=== PATIENT | male | born 1960 | race Caucasian/White ===

== ENCOUNTER 2018-03-10 09:41 | Outpatient (CLI) | payer OTHER, SELFPAY ==
[2018-03-10 10:53] LABS: ALT 25 U/L (12-78); AST 23 U/L (15-37); Albumin 3.7 g/dL (3.4-5.0); Alkaline Phosphatase 93 U/L (46-116); Anion Gap 6.1 mmol/L (3-11); BUN 18 mg/dL (7-18); Bilirubin, Total 1.9 mg/dL (0.2-1.0); CO2 30.9 mmol/L (21.0-32.0); CREATININE 1.04 mg/dL (0.70-1.30); Calcium 8.8 mg/dL (8.5-10.1); Chloride 103 mmol/L (98-107); Cholesterol 177 mg/dL (50-200); Glucose 93 mg/dL (70-100); HDL Cholesterol 64 mg/dL (40-60); LDL CHOLESTEROL 112 mg/dL (<100); Potassium 3.8 mmol/L (3.5-5.1); Sodium 140 mmol/L (136-145); Total Protein 6.6 g/dL (6.4-8.2); Triglyceride 32 mg/dL (30-150)
== END 2018-03-10 10:01 ==
PROVIDERS: PCP Nurse Practitioner; Visit Provider Nurse Practitioner
DX: Z00.00 Encounter for general adult medical examination without abnormal findings (principal); Z13.220 Encounter for screening for lipoid disorders; Z13.228 Encounter for screening for other metabolic disorders
CPT/HCPCS: 36415; 80053; 80061; 83721

== ENCOUNTER 2018-06-02 12:47 | Outpatient (CLI) | payer OTHER, SELFPAY ==
--- NOTE | 2018-06-02 10:15 | DI.RAD_ITS ---
SYMPTOM/DIAGNOSIS: SOB INDOORS WITH EXPOSURE TO ENVIRONMENTAL TOXINS, RADON EXPOSURE, X39.01XA,R06.02 PA AND LATERAL CHEST: The heart is normal in size. The lungs are clear. The mediastinal structures and pleura appear intact. CONCLUSION: Normal chest.
== END 2018-06-02 13:07 ==
PROVIDERS: PCP Nurse Practitioner; Visit Provider Nurse Practitioner
DX: R06.02 Shortness of breath (principal); X39.01XA Exposure to radon, initial encounter
CPT/HCPCS: 71046

== ENCOUNTER 2018-06-27 13:37 | Day surgery (SDC) | payer OTHER, SELFPAY ==
[2018-06-27 14:11] VITALS: BP 114/78; PULSE 78; RESP 16; TEMP 36; O2SAT 97
[2018-06-27] MEDS: Lidocaine 2% Multi-Dose 50 ML VIAL (17:06)
--- NOTE | 2018-06-27 17:46 | PDOC.DSDIS_ITS ---
Discharge Plan Disposition Patient Disposition: HOME Condition: Good Discharge Details Reason For Visit: MUCOUS CYST RLF Attending Provider: Soy Montenegro Primary Care Provider: Riddhi Pemberton Home Meds and New Rx's Prescriptions: Continued triamcinolone acetonide 15 GM ointment 1 alina Topical BID Qty: 15 RF: 0 Discharge Instructions Additional Instructions: Keep dressings dry and in place. May go to work on WED if you cover your dressing with a glove. Use your R hand as much as your discomfort allows. Take tylenol or ibuprofen for pain. Follow up with in one week. Call his office tomorrow to make [phone] Referrals: Soy Montenegro MD [ [facility] STAFF PHYSICIAN] - (f/u in one week.) Activity:: Activity as Tolerated Remove Dressings/Wound Care:: Do Not Remove Shower/Bathe:: Cover Discharge Orders Discharge Orders: Discharge Order (Routine); Ordered 06/27/18 Ordered By: Soy Montenegro DS: Diagnosis Discharge Diagnosis (1) Mucous cyst of digit of hand: Status: Acute
--- NOTE | 2018-06-28 17:09 | ROE_ITS ---
DATE OF PROCEDURE: June 27, 2018 PREOPERATIVE DIAGNOSIS: Mucous cyst, right little finger. POSTOPERATIVE DIAGNOSIS: Same. PROCEDURE: Excision of mucous cyst, right little finger. ANESTHESIA: Digital block with 1% Xylocaine solution and 0.5% Marcaine with epinephrine solution. SURGEON: Soy Montenegro M.D. INDICATIONS: This is a 58-year-old white male who has noted the development of a cyst overlying the DIP joint of his right little finger. He has been bothered by this cyst. He was tempted to put a pi n in it, but has refrained from doing so. He was seen in the office and it had the appearance of a t ypical mucous cyst, probably arising from a small dorsal osteophyte on the distal phalanx. I recomme nded excision of the mucous cyst, as well as the cause of the mucous cyst, a small osteophyte, so dominique t it won't return. The risks and complications of the procedure were explained to the patient in det ail preoperatively. PROCEDURE DESCRIPTION: The patient was taken to the Operating Room on 06/27/18. He was placed supine on the operating table. The right hand, wrist and distal forearm were prepped and draped free in th e usual sterile fashion. I performed a digital block to the right little finger at the level of the MP joint with 1% Xylocaine solution. Once good anesthesia was obtained, a Deidre tourniquet was alina lied to the base of the finger and then an incision was made beginning at the cuticle of the nail in the midline, curving around the cyst on the radial side of the finger and then coming back to the mid line proximal to the cyst. I began proximally and dissected down to the extensor tendon. I then cre ated flaps circumferentially around the cyst and was able to raise the flap with the attached cyst an d reflect it ulnarward. The source of the cyst could easily be seen and palpated was a small bony sp wes arising from the base of the distal phalanx. This spike was removed with a rongeur. I then proc eeded to sharply dissect the cyst from the overlying skin. I then used a small rongeur to assist wit h removal of all abnormal tissue from under the skin. I was left with viable skin and a viable flap to repair. The wound was irrigated with saline solution. The digital block was then supplemented wi th another digital block using 0.5% Marcaine with an epinephrine solution. The skin edges were appro ximated loosely with a few interrupted #4-0 Nylon sutures. Xeroform gauze was applied to the wound a nd then the Deidre tourniquet was released and pressure with a gauze 4x4 for a couple of minutes was used to obtain hemostasis. I then dressed the finger with tube gauze and taped it securely in place . The patient was discharged to the Day Surgery Unit in good condition. The patient was discharged home with instructions to keep his dressings clean and dry until he follow s up with me in one week for a wound check. After 48 hours he may return to work, but should use a g love to cover the finger and his dressings for work. He may use his right hand as much as discomfort allows. He will take Tylenol or ibuprofen for pain.
== END 2018-06-27 18:09 | disposition home or self-care (01) ==
PROVIDERS: PCP Nurse Practitioner; Visit Provider Orthopaedic Surgery
PROC: (CPT 26160; principal; 2018-06-27 13:45)
DX: M71.341 Other bursal cyst, right hand (principal)
CPT/HCPCS: 26115

== ENCOUNTER 2019-01-03 14:08 | Emergency (ER) | payer OTHER, SELFPAY ==
[2019-01-03] VITALS (7 sets, daily range): BP systolic 122–146; BP diastolic 83–90; PULSE 70–80; RESP 12–19; TEMP 36.6–36.7; O2SAT 98–100
--- NOTE | 2019-01-03 14:11 | NUR.NOTE ---
Nursing Note: primary care called. pt showed up on their doorstep reports that he was masturbating in the shower 5 days ago and developed chest pain. pt was watching porn on wednesday and developed chest pain. symptoms again yesterday and today. denies any lightheadedness or dizziness to them. they are unable to see patient in the office today and sent him to the er.
--- NOTE | 2019-01-03 14:26 | DI.RAD_ITS ---
EXAM: XR CHEST 2V PA LATERAL INDICATION: chest pain. COMPARISON: XR CHEST 2V PA LATERAL from 06/02/2018 TECHNIQUE: 2D digital imaging was performed. FINDINGS: Cardiac and mediastinal contours have a normal appearance. The lungs are well inflated and clear. N o infiltrate, effusion or pneumothorax is seen. The spine appears intact. IMPRESSION: Negative chest x-ray.
--- NOTE | 2019-01-03 14:26 | ED.GENADUL_ITS ---
Discharge Plan Disposition Patient Disposition: HOME Condition: Stable Discharge Details Chief Complaint: Chest Pain Clinical Impression: Chest pain Primary Care Provider: Riddhi Pemberton ED Provider: Cristian Coreas Home Meds and New Rx's Prescriptions: Continued triamcinolone acetonide 15 GM ointment 1 alina Topical BID Qty: 15 RF: 0 acetaminophen 500 mg Tablet 500 mg PO Q4H PRNRF: 0 Discharge Instructions Instructions: Chest Pain (ED) Additional Instructions: your blood work and chest xray were normal follow up with your primary care provider within 1 week if you have worsening pain, difficulty breathing, fevers or feel more ill return to the emergency department Medical Decision Making 58 yo male who denies chronic medical problems and denies smoking hx comes in with intermittent chest pain for 5 days. Denies any pain with exertion, radiation of pain, n/v, diaphoresis. He can't think of anything that makes this pain better or worse. Denies fevers or chills. He is in no distress on exam, no leg edema, no calf pain no jvd, clear lugns and no murmurs. EKG unremarkable. HEart score is 2, will send troponin. No tearing back pain and normal vascular exam so doubt dissection. No evidence of dvt, n opleuritic chest pain and no hypoxia or tachycardia so doubt PE. labs unremarkable and cxr normal and he remains pain free. Given 5 days of symptoms do not feel delta troponin would be of benefit. Will d/c and have him f/u with pcp, return precautions given Differential Diagnosis Differential Diagnosis: acs, ptx, pleurisy Imaging Data Radiologic Study: Attestation: I personally reviewed and interpreted this imaging study as follows: Imaging: X-Ray Radiologist's impression: no acute findings Lab Data Lab results reviewed: Yes I reviewed the patient's lab results. ECG Data Attestation: I personally reviewed and interpreted this ECG (s) as follows: Prior ECG tracings: not available for review Interpretation: sinus rhythm, rate of 75, pr 156, qtc 395, no acute st t wave ischemic findings HPI General Mode of arrival: ambulatory . Date/Time Provider Initiated Documentation: 01/03/19 14:09 . Limitations to Documentation: language barrier (deaf, used stone finisher for sign language) . Information obtained by: patient . History of Present Illness 58 year old M presents to the emergency department with the chief complaint of chest pain, described as moderate, Quality is described as aching, Patient started experiencing this day(s) (5) and it has been intermittent. No relieving factors improve symptom(s), No exacerbating factors reported . Patient notes no other symptoms.. Patient did receive the following treatments prior to arrival, none Related Data Home Medications Medication Instructions Recorded Confirmed triamcinolone acetonide 1 alina TOPICAL BID #15 gm 06/14/17 01/03/19 acetaminophen 500 mg PO Q4H PRN 01/03/19 01/03/19 Previous Rx's Medication Instructions Recorded triamcinolone acetonide 1 alina TOPICAL BID #15 gm 06/14/17 Allergies Allergy/AdvReac Type Severity Reaction Status Date / Time lobster Allergy Itching Uncoded 01/03/19 14:19 General Stated Complaint: Chest Pain ROGELIO: 3 Review of Systems All systems reviewed & are unremarkable except as noted in HPI and below Constitutional Constitutional: Denies chills, Denies fever(s) and Denies weakness Cardiovascular Cardiovascular: Denies dyspnea Respiratory Respiratory: Denies cough and Denies dyspnea Gastrointestinal Gastrointestinal: Denies abdominal pain, Denies nausea and Denies vomiting Musculoskeletal Musculoskeletal: Denies joint swelling Neurologic Neurologic: Denies weakness FOR[facility], [facility] Family History (Updated 11/04/17 @ 14:13 by Vandana Ray RN) Mother Stroke CLL (chronic lymphocytic leukemia) Father Bone cancer Brother No problems noted. Brother No problems noted. Brother No problems noted. Brother No problems noted. Sister No problems noted. Social History (Updated 03/08/18 @ 11:43 by Cecily Julian RN) Smoking/Tobacco Use Status: Never Alcohol Intake: current Alcohol Intake frequency: a few times a month Alcohol type: beer Drug use: Never Substance use type: does not use Adopted: No Housing: house current occupation: [employer] Do you feel safe at home: Yes Do you feel safe in your relationship?: Yes Exam Const General: no acute distress Orientation: alert HENTX Head: normal to inspection Ears: external ears normal General nose exam: external nose normal Mouth: moist mucous membranes Eyes General: appearance normal, both eyes and all related structures Neck Neck: normal visual inspection Resp Effort & Inspection: normal respiratory effort and able to speak in complete sentences Cardio Rate: regular rate Skin General skin exam: no rashes or lesions noted Neuro General: alert and oriented x3 Extrem General: normal to inspection Psych Mental Status: mental status grossly normal Course Vital Signs Vital signs: Vital Signs Temperature 36.7 C 01/03/19 14:14 Pulse 75 01/03/19 14:14 Respiratory Rate 01/03/19 14:14 Blood Pressure 146/83 H 01/03/19 14:14 Pulse Oximetry 100 01/03/19 14:14 Temperature 36.7 C 01/03/19 14:14 Temperature Source Temporal Artery Scan 01/03/19 14:14 Pulse 75 01/03/19 14:14 Respiratory Rate 01/03/19 14:14 Respiratory Effort Non-Labored 01/03/19 14:17 Blood Pressure 146/83 H 01/03/19 14:14 Blood Pressure Position Sitting 01/03/19 14:14 Pulse Oximetry 100 01/03/19 14:14 Oxygen Delivery Method Room Air 01/03/19 14:14 Oxygen Flow Rate 0 01/03/19 14:14 Pain Level 2 01/03/19 14:14
[2019-01-03 14:36] LABS: Absolute Basophil Count 0.01 k/cumm (0.0-0.2); Absolute Eosinophil Count 0.05 k/cumm (0.0-0.7); Absolute Lymphocyte Count 1.03 k/cumm (1.2-3.4); Absolute Monocyte Count 0.33 k/cumm (0.11-0.7); Basophils % 0.3; Eosinophils % 1.3; HGB 16.4 g/dL (13.5-17.5); Lymphocytes % 27.7; Mean Corp. HGB Concentration 34.9 g/dL (32.0-36.0); Mean Corpuscular Hemoglobin 32.6 pg (27.0-33.0); Mean Corpuscular Volume 93.4 fL (80-95); Mean Platelet Volume 8.6 fL (8.0-11.0); Monocytes % 8.9; Neutrophils % 61.8; Platelet Count 194 x1000/uL (130-400); RBC 5.03 m/cumm (4.50-6.00); RBC Distribution Width 11.7 % (11.8-14.1); White Blood Cell Count 3.72 k/cumm (4.4-10.8)
[2019-01-03 14:50] LABS: INR 1.1 (0.9-1.1); PTT Activated 27.4 sec (21.0-31.4); Prothrombin Time 10.7 sec (9.3-11.0)
[2019-01-03 15:09] LABS: ALT 19 U/L (16-63); AST 15 U/L (15-37); Albumin 3.6 g/dL (3.4-5.0); Alkaline Phosphatase 89 U/L (46-116); Anion Gap 5.9 mmol/L (3-11); BUN 13 mg/dL (7-18); CO2 31.1 mmol/L (21.0-32.0); Calcium 8.6 mg/dL (8.5-10.1); Chloride 104 mmol/L (98-107); Glucose 68 mg/dL (74-106); Sodium 141 mmol/L (136-145); Total Protein 6.9 g/dL (6.4-8.2)
[2019-01-03 15:13] LABS: Troponin I < 0.05 ng/Ml (<0.06)
--- NOTE | 2019-01-03 18:18 | NUR.NOTE ---
Referral faxed [facility] Internal Medicine Riddhi Pemberton.Nursing Note:
== END 2019-01-03 16:03 | disposition home or self-care (01) ==
PROVIDERS: Emergency Provider Emergency Medicine; PCP Nurse Practitioner
DX: R07.9 Chest pain, unspecified (principal)
CPT/HCPCS: 36415; 80053; 93005; 99285; 71046; 84484; 85025; 85610; 85730; 93010

== ENCOUNTER 2019-04-06 10:17 | Outpatient (CLI) | payer OTHER, SELFPAY ==
[2019-04-06 10:37] LABS: Absolute Basophil Count 0.03 k/cumm (0.0-0.2); Absolute Eosinophil Count 0.09 k/cumm (0.0-0.7); Absolute Lymphocyte Count 1.13 k/cumm (1.2-3.4); Absolute Monocyte Count 0.36 k/cumm (0.11-0.7); Absolute Neutrophil Count 2.13 k/cumm (1.2-6.7); Basophils % 0.8; Eosinophils % 2.4; HCT 47.6 % (40.0-50.0); HGB 16.6 g/dL (13.5-17.5); Lymphocytes % 30.2; Mean Corp. HGB Concentration 34.9 g/dL (32.0-36.0); Mean Corpuscular Hemoglobin 32.9 pg (27.0-33.0); Mean Corpuscular Volume 94.3 fL (80-95); Mean Platelet Volume 8.6 fL (8.0-11.0); Monocytes % 9.6; Platelet Count 170 x1000/uL (130-400); RBC 5.05 m/cumm (4.50-6.00); RBC Distribution Width 11.9 % (11.8-14.1); White Blood Cell Count 3.74 k/cumm (4.4-10.8)
[2019-04-06 12:27] LABS: Calculated LDL 110 mg/dL (<100); Cholesterol 183 mg/dL (<200); HDL Cholesterol 63 mg/dL (40-60); TSH (W/Ref FT4) 2.34 uIU/mL (0.36-3.74); Triglyceride 51 mg/dL (<150); Vitamin B12 291 pg/mL (193-986)
[2019-04-07 11:14] LABS: Syphilis Serology (RPR) Negative (Negative)
== END 2019-04-06 10:37 ==
PROVIDERS: PCP Nurse Practitioner; Visit Provider Nurse Practitioner
DX: I10 Essential (primary) hypertension (principal); R68.89 Other general symptoms and signs; Z13.220 Encounter for screening for lipoid disorders; Z80.6 Family history of leukemia
CPT/HCPCS: 36415; 80061; 82607; 84443; 85025; 86592

== ENCOUNTER 2020-05-29 09:18 | Outpatient (CLI) | payer OTHER, SELFPAY ==
--- NOTE | 2020-05-29 09:15 | RT.EKG_ITS ---
APPROVED REPORT Exam: Resting ECG Patient Location: O HR:66 bpm ECG Measurements Heart Rate 66 AXIS OR 161 P 62 QRSd 85 QRS 36 QT 377 T 33 QTc 396 Conclusion Sinus rhythm...normal P axis, V-rate 60- 99
== END 2020-05-29 09:19 | disposition home or self-care (01) ==
LOC: DI.KIM 09:18
PROVIDERS: PCP Nurse Practitioner; Visit Provider Nurse Practitioner
DX: R07.89 Other chest pain (principal)
CPT/HCPCS: 93010

== ENCOUNTER 2020-05-30 02:57 | Outpatient (CLI) | payer OTHER, SELFPAY ==
[2020-05-30 12:23] LABS: Abs Immature Grans 0.01 10^3/uL (0.0-0.06); Absolute Basophil Count 0.03 10^3/uL (0.0-0.2); Absolute Eosinophil Count 0.12 10^3/uL (0.0-0.7); Absolute Lymphocyte Count 1.38 10^3/uL (1.2-3.4); Absolute Monocyte Count 0.35 10^3/uL (0.1-0.8); Basophils % 0.8; Eosinophils % 3.1; HCT 48.1 % (40.0-50.0); HGB 16.5 g/dL (13.5-17.5); Immature Grans % 0.3; Lymphocytes % 35.8; MCH 32.9 pg (27.0-33.0); MCHC 34.3 % (32.0-36.0); MCV 95.8 fL (80-95); MPV 9.4 fL (8.0-11.0); Monocytes % 9.1; Neutrophils % 50.9; Nucleated RBC 0 %; Platelet Count 176 10^3/uL (130-400); RBC 5.02 10^6/uL (4.36-5.78); RDW 11.7 % (11.8-14.1); RDW-SD 41.1 fL; WBC 3.86 10^3/uL (4.4-10.8)
[2020-05-30 12:28] LABS: Absolute Neutrophil Count 1.96 10^3/uL (1.2-6.7)
[2020-05-30 12:56] LABS: ALT 21 U/L (16-63); AST 17 U/L (15-37); Albumin 3.9 g/dL (3.4-5.0); Alkaline Phosphatase 91 U/L (46-116); Anion Gap 8.5 mmol/L (3-11); BUN 15 mg/dL (7-18); Bilirubin, Total 1.2 mg/dL (0.2-1.0); CO2 28.5 mmol/L (21.0-32.0); Calcium 8.6 mg/dL (8.5-10.1); Calculated LDL 103 mg/dL (<100); Chloride 105 mmol/L (98-107); Cholesterol 170 mg/dL (<200); Glucose 95 mg/dL (74-106); HDL Cholesterol 56 mg/dL (40-60); Potassium 3.9 mmol/L (3.5-5.1); Sodium 142 mmol/L (136-145); Total Protein 6.7 g/dL (6.4-8.2); Triglyceride 55 mg/dL (<150)
== END 2020-05-30 02:58 | disposition home or self-care (01) ==
LOC: LOS 02:58
PROVIDERS: PCP Nurse Practitioner; Visit Provider Nurse Practitioner
DX: R07.89 Other chest pain (principal); J45.909 Unspecified asthma, uncomplicated; Z13.220 Encounter for screening for lipoid disorders; Z83.3 Family history of diabetes mellitus
CPT/HCPCS: 36415; 80053; 80061; 85025

== ENCOUNTER 2021-04-21 14:35 | Outpatient (CLI) | payer OTHER, SELFPAY ==
--- NOTE | 2021-04-21 13:45 | DI.RAD_ITS ---
Exam(s) XR KNEE LT 3V AP,LAT,MARIA DOLORES EXAM: XR KNEE LT 3V AP,LAT,MARIA DOLORES CLINICAL HISTORY: left knee pain. TECHNIQUE: 2D digital imaging was performed. Three views. COMPARISON: CR RIGHT KNEE 3 VIEWS from 10/08/2010 FINDINGS: BONES: No acute fracture is present. No bony destructive lesion is seen. Minimal spurring at the tib ial spines. JOINTS: The joint spaces are well maintained. The knee is normally aligned. No joint effusion is see n. SOFT TISSUE: Normal. IMPRESSION: Minimal degenerative changes. DATA REPOSITORY: RADIATION DOSE DELIVERED:
== END 2021-04-21 14:36 | disposition home or self-care (01) ==
LOC: DIORS 14:54
PROVIDERS: PCP Nurse Practitioner; Visit Provider Student in an Organized Health Care Education/Training Program
DX: M25.562 Pain in left knee (principal); M76.892 Other specified enthesopathies of left lower limb, excluding foot
CPT/HCPCS: 73562

== ENCOUNTER 2021-06-25 08:58 | Outpatient (CLI) | payer OTHER, SELFPAY ==
--- NOTE | 2021-06-25 08:45 | RT.EKG_ITS ---
APPROVED REPORT Exam: Resting ECG Reason for Exam: SOB Patient Location: O HR:67 bpm ECG Measurements Heart Rate 67 AXIS MN 161 P 58 QRSd 86 QRS 32 QT 387 T 34 QTc 409 Conclusion Sinus rhythm...normal P axis, V-rate 60- 99 ST elevation, consider anterior injury...ST >0.15mV, V1-V5
== END 2021-06-25 08:59 | disposition home or self-care (01) ==
LOC: DI.KIM 08:59
PROVIDERS: PCP Nurse Practitioner; Visit Provider Nurse Practitioner
DX: R06.02 Shortness of breath (principal); R06.09 Other forms of dyspnea; R94.31 Abnormal electrocardiogram [ECG] [EKG]
CPT/HCPCS: 93010

== ENCOUNTER 2021-06-25 10:08 | Outpatient (CLI) | payer OTHER, SELFPAY ==
--- NOTE | 2021-06-25 09:43 | DI.RAD_ITS ---
Exam(s) XR CHEST 2V PA LATERAL EXAM: XR CHEST 2V PA LATERAL CLINICAL HISTORY: SOB, sternal discomfort - R06.02 TECHNIQUE: 2D digital imaging was performed. COMPARISON: CR XR CHEST 2V PA LATERAL from 01/03/2019 FINDINGS: MEDIASTINUM: Normal. HEART: Normal. PULMONARY VASCULATURE: Normal. LUNGS: Clear. PLEURAL SPACE: No pleural effusion or pneumothorax. BONE:Unremarkable for age. IMPRESSION: No acute abnormality. DATA REPOSITORY: RADIATION DOSE DELIVERED:
== END 2021-06-25 10:28 ==
PROVIDERS: PCP Nurse Practitioner; Visit Provider Nurse Practitioner
DX: R06.02 Shortness of breath (principal)
CPT/HCPCS: 71046

== ENCOUNTER 2021-06-26 02:12 | Outpatient (CLI) | payer OTHER, SELFPAY ==
[2021-06-26 10:17] LABS: Abs Immature Grans 0.01 10^3/uL (0.0-0.06); Absolute Basophil Count 0.03 10^3/uL (0.0-0.2); Absolute Eosinophil Count 0.12 10^3/uL (0.0-0.7); Absolute Lymphocyte Count 1.25 10^3/uL (1.2-3.4); Absolute Monocyte Count 0.36 10^3/uL (0.1-0.8); Absolute Neutrophil Count 2.53 10^3/uL (1.2-6.7); Basophils % 0.7; Eosinophils % 2.8; HCT 47.3 % (40.0-50.0); HGB 16.2 g/dL (13.5-17.5); Immature Grans % 0.2; Lymphocytes % 29.1; MCH 32.5 pg (27.0-33.0); MCHC 34.2 % (32.0-36.0); MCV 95 fL (80-95); MPV 8.7 fL (8.0-11.0); Monocytes % 8.4; Neutrophils % 58.8; Platelet Count 169 10^3/uL (130-400); RBC 4.98 10^6/uL (4.36-5.78); RDW 11.7 % (11.8-14.1)
[2021-06-26 11:18] LABS: ALT 26 U/L (16-63); AST 23 U/L (15-37); Albumin 3.7 g/dL (3.4-5.0); Alkaline Phosphatase 95 U/L (46-116); Anion Gap 6.8 mmol/L (3-11); BUN 17 mg/dL (7-18); Bilirubin, Total 1.3 mg/dL (0.2-1.0); CO2 30.2 mmol/L (21.0-32.0); Calcium 8.4 mg/dL (8.5-10.1); Chloride 104 mmol/L (98-107); Glucose 95 mg/dL (74-106); Potassium 3.8 mmol/L (3.5-5.1); Sodium 141 mmol/L (136-145); Total Protein 6.5 g/dL (6.4-8.2)
== END 2021-06-26 02:13 | disposition home or self-care (01) ==
LOC: LBO 02:12
PROVIDERS: PCP Nurse Practitioner; Visit Provider Nurse Practitioner
DX: R06.02 Shortness of breath (principal); J45.909 Unspecified asthma, uncomplicated
CPT/HCPCS: 36415; 80053; 85025

== ENCOUNTER → 2021-07-10 01:54 | Outpatient (CLI) | payer OTHER, SELFPAY ==
--- NOTE | 2021-07-10 07:30 | DI.NM_ITS ---
APPROVED REPORT Exam: Exercise Treadmill Patient Location: Out-Patient Room/Bed: Stress Nurse: Ary Holder RN Ordering Provider:JOSE A CALVO, Contact Number: [phone] BMI: 23.96 Baseline Rhythm: Sinus Rhythm Indications: REDMAN, SOB Medical History Medical History: Sensorinureal hearing loss Cardiac Medications: None Allergies: Lobster Cardiac Risk Factors: None Previous Cardiac Procedures: None Pretest Chest Pain Characteristics: None Exercise History: Sedentary Physical Disabilities: None Lung Sounds: Clear to auscultation Heart Sounds: Regular Stress Test Details Test: Exercise stress testing was performed using a Pool protocol. Nuclear Acquisition: Rest Tc-99m/Stress Tc-99m 1 day Rest Isotope: Tc-99m Sestamibi. Dose: 9.7 Date: 07/10/2021 Injection Time: 0930 Stress Isotope: Tc-99m Sestamibi. Dose: 31.8 Date: 07/10/2021 Injection Time: 1110 HR Resting HR Supine: 65 bpm Max Heart Rate (APMHR): 160.439977 bpm Resting HR Standin bpm Target HR (85% APMHR): 136.230532 bpm Max HR Achieved: 167 bpm % of APMHR: 104.38 Recovery HR: 100 bpm HR response to stress: Normal HR response to stress BP Resting BP Supine: 142/90 mmHg Resting BP Standin/92 mmHg Max BP: 200/84 mmHg Recovery BP: 142/90 mmHg BP response to stress: Normal blood pressure response to stress. ECG Resting ECG: Sinus Rhythm Ectopy: None Stress ECG: Sinus Tachycardia ST Change: No significant ST segment changes noted Arrhythmia: None, None Recovery ECG: Sinus Rhythm Recovery ST Change: No significant ST segment changes noted Recovery Arrhythmia: Rare PVC Clinical Reason for Termination: Fatigue Stress Symptoms: General Fatigue, Dyspnea Exercise duration: 7 min19 sec Highest Stage Reached: Stage 3: 3.4 mph at 14% grade. Exercise capacity: 9.08 METs Angina Score: None Zamora Treadmill Score: 6.3 Rate Pressure Product: [id number] Stress ECG Conclusion 1. Resting electrocardiogram was within normal limits 2. Patient exercised on the Pool protocol and completed a workload of 9.08 METS, stopping due to fat igue 3. Normal heart rate and blood pressure response to exercise. The patient achieved greater than 100% of predicted heart rate for age 4. There was no electrocardiographic evidence of myocardial ischemia 5. There were no dysrhythmias Zamora Treadmill Score is 6.3 which is Low risk. Stress Test Summary STAGE Time (mins) Speed (mph) Grade (%) HR BP SYMPTOMS METS Supine 65 142/90 Standing 67 148/92 SpO2 95% 1 3 1.7 10 122 156/94 SpO2 95% 4.6 2 6 2.5 12 152 174/96 Moderate SOB, SpO2 95% 7 3 9 3.4 14 164 Moderate SOB, SpO2 95% 10.2 1 min recovery 143 200/84 Mild SOB, SpO2 97% 3 min recovery 112 182/86 SOB resolved, SpO2 97% 6 min recovery 105 156/92 SpO2 97% 9 min recovery 100 142/90 SpO2 97% MPI test done with video manager chinese. Pt tolerated testing well. MPI Conclusion Normal myocardial perfusion without evidence of ischemia or prior infarction EF 67%, normal wall motion Radiologist Interpretation Radiologist Interpretation by: Chucky Donovan MD Interpretation Date/Time: 07/10/2021 16:57:35
== END ==
PROVIDERS: PCP Nurse Practitioner; Visit Provider Nurse Practitioner
DX: R06.00 Dyspnea, unspecified (principal)
CPT/HCPCS: 78452; 93017

== ENCOUNTER 2021-09-18 03:07 | Outpatient (CLI) | payer OTHER, SELFPAY ==
[2021-09-18 12:01] LABS: Calculated LDL 100 mg/dL (<100); Cholesterol 173 mg/dL (<200); HDL Cholesterol 63 mg/dL (40-60); Triglyceride 51 mg/dL (<150)
[2021-09-19 08:55] LABS: PSA, Screening 0.7 ng/mL (<=4.5)
[2021-09-19 09:42] LABS: Hepatitis C Ab w Rflx HCV PCR Negative (Negative)
[2021-09-19 10:34] LABS: HIV-1/2 Ag & Ab Screen Negative (Negative)
== END 2021-09-18 03:08 | disposition home or self-care (01) ==
PROVIDERS: PCP Nurse Practitioner; Visit Provider Nurse Practitioner
DX: Z13.220 Encounter for screening for lipoid disorders (principal); Z11.59 Encounter for screening for other viral diseases; Z12.5 Encounter for screening for malignant neoplasm of prostate; Z11.4 Encounter for screening for human immunodeficiency virus [HIV]
CPT/HCPCS: 36415; 80061; 84153; 86803; 87389

== ENCOUNTER 2022-03-12 07:16 | Day surgery (SDC) | payer OTHER, SELFPAY ==
--- NOTE | 2022-03-11 21:00 | W.PM.DSUDISC ---
Date of service: 03/12/22 Time of Service: 08:59 Discharge Plan Disposition Patient Disposition: Home Condition: Good Discharge Details Reason For Visit: screening colonoscopy Attending Provider: Edmond Donovan Primary Care Provider: Riddhi Pemberton Home Meds and New Rx's Prescriptions: Continued ibuprofen [Advil] 200 mg tablet 200 mg PO Q4H PRN Rx Instructions: for joint pain. ascorbic acid (vitamin C) 500 mg capsule 500 mg PO DAILY triamcinolone acetonide 15 GM ointment 1 alina Topical BID Qty: 15 0RF Rx Instructions: APPLY THIN LAYER TO RASH TWICE PER DAY FOR 7-14 DAYS (UNTIL RASH GONE). acetaminophen 500 mg Tablet 500 mg PO Q4H PRN Discontinued bisacodyl [Dulcolax (bisacodyl)] 5 mg tablet,delayed release (DR/EC) 5 mg PO ONCE Qty: 4 0RF Rx Instructions: Take according to provider's instructions for colonoscopy prep. polyethylene glycol 3350 17 gram/dose powder 17 g PO ONCE Qty: 238 0RF Rx Instructions: To be taken as directed by prescriber's office for colonoscopy prep. Discharge Instructions Instructions: Diverticulosis (GEN), Diverticulosis Diet (GEN) Additional Instructions: 1. If tolerated, consume a soft, low fiber diet for 1-2 days. 2[address] Do not drive, drink alcohol, operate machinery, make critical decisions, or do activities that require coordination or balance for 24 hours. 3. Because air was put into your colon during the procedure, expelling air from your rectum (passing gas or farting) is normal. 4. You may not have a bowel movement for 1-3 days because of the colonoscopy prep. This is normal. 5. Go directly to the emergency room if you notice any of the following: Develop chills (warm to touch), or if you have a thermometer and your temperature is above 101 Difficulty breathing or difficultly swallowing Persistent vomiting Severe abdominal pain, other than gas cramps Severe chest pain Black, tarry stools Any bleeding ? exceeding one tablespoon 6. Call your physician if the site where your intravenous was started becomes red, swollen, painful, and warm to touch. 7. Your physician has reviewed your pre-procedure medications. Please continue to take those medications as previously ordered. You will be given specific information/education regarding any changes to your medications before leaving. Activity:: Activity as Tolerated Diet:: As Tolerated Discharge Orders Discharge Orders: Discharge Order (Routine); Ordered 03/11/22 Ordered By: Edmond Donovan DS: Diagnosis Discharge Diagnosis (1) Screening for colon cancer: Status: Acute Asessment and Plan: Ilya, we were able to complete your colonoscopy without any difficulty today. You have very mild sigmoid diverticulosis. Otherwise, the colonoscopy is normal, and I do not see any evidence of polyps or cancers. I recommend another colonoscopy in 10 years to reduce your chance of from colon cancer
--- NOTE | 2022-03-11 21:01 | W.COLOREPORT ---
Date of service: 03/12/22 Time of Service: 09:01 Colonoscopy Report Date of procedure: 03/12/22 Pre-op diagnosis general: Screening colonoscopy Post-op diagnosis procedure note: other (Diverticulosis) Procedure: Colonoscopy Surgeon: Edmond Donovan Anesthesia Type: General:No Airway Estimated blood loss (mL): 0 Pathology: none sent Complications: None Disposition: same day Indications: Ilya is a 62-year-old male here for his next screening colonoscopy Prep: Miralax/Dulcolax Procedure Start Time: 08:34 Procedure End Time: 08:47 Retraction Time: 8 Findings: Sigmoid diverticulosis Procedure Description: After the induction of monitored anesthetic care, and with the patient in left lateral decubitus position, I began by performing an external anorectal exam.? Perineum and skin were normal, as was the anal verge.? There was no evidence of external hemorrhoids.? Next, I performed a digital rectal exam.? I did not appreciate any abnormal findings.? Next, I advanced a colonoscope into the rectal vault.? I performed retroflexion.? This was normal.? Using insufflation, I then advanced the colonoscope beyond the rectal folds and into the sigmoid colon before advancing towards the cecum.? There was some occasional sigmoid diverticula, extending from about 25 cm to about 35 cm the quality of the prep was excellent.? The scope was noted to be in the cecum by identification of the ileocecal valve and appendiceal orifice.? I then began withdrawing the colonoscope using repeated irrigation as necessary for full evaluation of the colonic mucosa. ?Once the scope was withdrawn to the level of the rectum, great care was taken to examine portions of the rectal folds.? Finally, the scope was withdrawn and the patient was brought to the same-day surgery recovery unit as the anesthetic wore off. ?The findings and instructions were shared with the patient prior to discharge.
[2022-03-12 07:42] VITALS: BP 119/86; PULSE 74; RESP 16; TEMP 36.2; O2SAT 99
--- NOTE | 2022-03-12 07:58 | W.ANESPRE ---
General Info Date of Service Date Performed: 03/12/22 Height: 5 ft 7 in Weight: 66.2 kg Body Mass Index (BMI): 22.8 Surgical Procedure: Operation Date: 03/12/22 09:05 Proposed Procedure Side Surgeon p Colonoscopy Edmond Donovan MD Meds Allergies and Home Medications Allergies Allergy/AdvReac Type Severity Reaction Status Date / Time lobster Allergy Itching Uncoded 03/12/22 07:40 Home Medication Medication Instructions Recorded triamcinolone acetonide 0.1 % 1 alina topical BID #15 grams 06/14/17 topical ointment acetaminophen 500 mg tablet 500 mg PO Q4H PRN 01/03/19 ascorbic acid (vitamin C) 500 mg 500 mg PO DAILY 05/03/19 capsule ibuprofen 200 mg tablet (Advil) 200 mg PO Q4H PRN 08/19/21 Current Visit Medications: Current Medications Generic Name Dose Route Start Last Admin Trade Name Freq PRN Reason Stop Dose Admin Hyoscyamine Sulfate 0.125 mg 03/11/22 21:03 Hyoscyamine 0.125 Mg Sl/Oral/Chew SL DIRECTED PRN Ondansetron HCl 4 mg 03/11/22 21:03 Ondansetron 4 Mg/2 Ml Vial IVP Q4H PRN PRN Nausea / Vomiting PFSH Active Problems Active Problems: Problem Status Onset Code Screening for colon cancer Z12.11 Sensorineural hearing loss H90.5 Internal derangement of left knee ~01/2021 M23.92 Screening for cholesterol level Z13.220 Chest tightness R07.89 Pain, dental K08.89 Forgetfulness R68.89 Routine medical exam Z00.00 Sensorineural hearing loss of both ears H90.3 Mucous cyst of digit of hand M67.449 Family history of diabetes mellitus 03/10/11 Z83.3 Eczema 12/22/13 L30.9 Deaf mutism, 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 Surgical History Surgical History Cataracts, bilateral (~1999) Hx of colonoscopy (~2011) Tobacco Smoking/Tobacco Use Status: Never Passive smoking exposure: No Alcohol Alcohol Intake: current Alcohol intake frequency: a few times a week Substance Use Substance use: Never Substance use type: does not use Vital Signs and Lab Results Vital Signs Most Recent Vital Signs in EMR: Most Recent Vital Signs Temp Pulse Resp BP Pulse Ox 36.2 C L 74 16 119/86 99 03/12/22 07:42 03/12/22 07:42 03/12/22 07:42 03/12/22 07:42 03/12/22 07:42 Lab Results Blood Type / Crossmatch: No Data to Display Complete Blood Count: No Data to Display Complete Metabolic Panel: No Data to Display Liver Function Panel: No Data to Display Coagulation Panel: No Data to Display Cardiac Panel: No Data to Display Arterial Blood Gas: No Data to Display Venous Blood Gas: No Data to Display Pancreas Panel: No Data to Display Thyroid Panel: No Data to Display Infectious Disease: No Data to Display Blood Cultures: No Data to Display Toxicology Panel: No Data to Display Anesthesia Assessment and Plan Anesthesia History Personal History: No History of Anesthesia Complications Family History: No Family History of Anesthesia Complications Exercise Tolerance Exercise Tolerance: Metabolic Equivalents>4 Pertinent Negatives Pertinent Negatives: No Symptoms of GERD Cardiac & Pulmonary Exam Cardiac Exam: Normal S1/S2 Heart Sounds Pulmonary Exam: Clear Bilateral Breath Sounds Implantable Cardiac Device Does patient have a Pacemaker or an ICD?: No Airway Exam Known Difficult Airway: No Mallampati Class: 2 Mouth Opening: Normal (> 3cm) Thyromental Distance: Greater than 3 cm Facial Hair: Full Yoder Neck Range of Motion: Full ROM Neck Circumference: Normal Teeth Condition: Normal Dentition ASA Classification ASA Score: ASA 2 Emergency Case?: No NPO Status NPO Status: NPO Clears >2 hours, Solids >8 hours Anesthesia Plan Resuscitation Status: Full Code Anesthesia Technique: General Anesthesia Airway Planned: Natural Airway Monitors Used: Standard Monitors
[2022-03-12 08:19] VITALS: BMI 22.8
[2022-03-12] MEDS: Lactated Ringers 1,000 ML 80 ML IV (08:20)
[2022-03-12 08:58] VITALS: BP 115/80; PULSE 89; RESP 16; TEMP 36.4; O2SAT 100
--- NOTE | 2022-03-12 09:18 | W.ANESPOSTOP ---
Postoperative Evaluation Date, Time and Location Date Performed: 03/12/22 Time Performed: 09:18 Patient Location: Day Surgery Unit Vital Signs Most Recent Imported Vital Signs: Most Recent Vital Signs Temp Pulse Resp BP Pulse Ox 36.2 C L 74 16 119/86 99 03/12/22 07:42 03/12/22 07:42 03/12/22 07:42 03/12/22 07:42 03/12/22 07:42 Pain Score Most Recent Pain Score: Most Recent Pain Score Pain Level 0 03/12/22 07:42 Assessment Mental Status: Awake (Alert & Oriented to Patient Baseline) Airway and Respiratory Function: Patent airway with normal (patient baseline) respiratory exam Cardiovascular Function: Hemodynamically Stable Hydration Status: Adequately Hydrated Nausea & Vomiting: No Nausea or Vomiting Pain: Pt. Denies Any Pain Peripheral Nerve Block: Patient did not receive a nerve block
[2022-03-12 09:32] VITALS: BP 125/87; PULSE 74; RESP 18; TEMP 36.6; O2SAT 100
== END 2022-03-12 10:30 | disposition home or self-care (01) ==
PROVIDERS: PCP Nurse Practitioner; Visit Provider Surgery
PROC: 0DJD8ZZ Inspection of Lower Intestinal Tract, Via Natural or Artificial Opening Endoscopic (ICD-10-PCS; CPT 45378; principal; 2022-03-12 09:00)
DX: Z12.11 Encounter for screening for malignant neoplasm of colon (principal); K57.30 Diverticulosis of large intestine without perforation or abscess without bleeding
CPT/HCPCS: 45378; J2704

== ENCOUNTER 2022-07-24 02:02 | Outpatient (CLI) | payer OTHER, SELFPAY ==
[2022-07-24 09:55] LABS: TSH (W/Ref FT4) 4.17 uIU/mL (0.36-3.74); Vitamin B12 355 pg/mL (193-986)
[2022-07-24 10:20] LABS: FREE T4 0.66 ng/dL (0.76-1.46)
== END 2022-07-24 02:03 | disposition home or self-care (01) ==
LOC: LBO 02:02
PROVIDERS: PCP Nurse Practitioner; Visit Provider Nurse Practitioner
DX: R41.3 Other amnesia (principal)
CPT/HCPCS: 36415; 82607; 84439; 84443

== ENCOUNTER 2022-07-30 15:52 | Outpatient (CLI) | payer OTHER, SELFPAY ==
--- NOTE | 2022-07-30 12:00 | DI.RAD_ITS ---
Exam(s) XR THUMB RT EXAM: XR THUMB RT CLINICAL HISTORY: right thumb pain with use, M79.644. TECHNIQUE: 2D digital imaging was performed. COMPARISON: No exams were available for comparison FINDINGS: 3 views There is a 1 millimeter calcific density seen adjacent to the lateral aspect of the interphalangeal j oint of the thumb. This does not have the appearance of a typical fracture fragment. There is no de fect in the adjacent parent bone. It is seen dorsally on the lateral view. There are minimal if any significant degenerative changes in the interphalangeal joint. The thumb metacarpophalangeal joint appears unremarkable as does the 1st carpometacarpal joint. No degenerative changes nor erosions prabhu dent in these joints. No evidence of osteomyelitis. IMPRESSION: Tiny 1 mm calcific density seen adjacent to the lateral aspect of the interphalangeal joint of the th umb. No other osseous findings in the thumb. DATA REPOSITORY: RADIATION DOSE DELIVERED:
== END 2022-07-30 16:12 ==
PROVIDERS: PCP Nurse Practitioner; Visit Provider Nurse Practitioner Family
DX: M79.644 Pain in right finger(s) (principal); M61.441 Other calcification of muscle, right hand
CPT/HCPCS: 73140

== ENCOUNTER 2022-08-31 18:42 | Outpatient (REF) | payer OTHER, SELFPAY ==
[2022-08-31 21:13] LABS: Abs Immature Grans 0.01 10^3/uL (0.0-0.06); Absolute Basophil Count 0.04 10^3/uL (0.0-0.2); Absolute Eosinophil Count 0.13 10^3/uL (0.0-0.7); Absolute Monocyte Count 0.36 10^3/uL (0.1-0.8); Absolute Neutrophil Count 3.09 10^3/uL (1.2-6.7); Basophils % 0.8; Eosinophils % 2.6; HCT 46.8 % (40.0-50.0); Immature Grans % 0.2; Lymphocytes % 26.4; MCH 32.6 pg (27.0-33.0); MCHC 34.2 % (32.0-36.0); MCV 95 fL (80-95); MPV 9.3 fL (8.0-11.0); Monocytes % 7.3; Neutrophils % 62.7; Platelet Count 183 10^3/uL (130-400); RBC 4.91 10^6/uL (4.36-5.78); RDW 11.7 % (11.8-14.1); RDW-SD 41.2 fL; WBC 4.93 10^3/uL (4.4-10.8)
[2022-08-31 22:02] LABS: Anion Gap 7.4 mmol/L (3-11); BUN 19 mg/dL (7-18); CO2 29.6 mmol/L (21.0-32.0); CREATININE 1.1 mg/dL (0.70-1.30); Calcium 8.6 mg/dL (8.5-10.1); Chloride 105 mmol/L (98-107); Estimated GFR 76.37 (mL/min/1.73m2); Glucose 97 mg/dL (74-106); Potassium 4.8 mmol/L (3.5-5.1); Sodium 142 mmol/L (136-145); TSH (W/Ref FT4) 1.35 uIU/mL (0.36-3.74)
[2022-09-02 12:06] LABS: Lyme Ab w Rflx to Lyme Confirm Negative (Negative)
[2022-09-04 00:34] LABS: Anaplasma phagocytophilum Negative (Negative); B. miyamotoi PCR Negative (Negative); Babesia divergens/MO-1 Negative (Negative); Babesia duncani Negative (Negative); Babesia microti Negative (Negative); Ehrlichia chaffeensis Negative (Negative); Ehrlichia ewingii/canis Negative (Negative); Ehrlichia muris eauclairensis Negative (Negative)
== END 2022-08-31 18:43 | disposition home or self-care (01) ==
LOC: LBN 18:42
PROVIDERS: PCP Nurse Practitioner; Visit Provider Physician Assistant
DX: R53.83 Other fatigue (principal)
CPT/HCPCS: 80048; 87798; 84443; 85025; 86618

== ENCOUNTER 2022-08-31 18:51 | Outpatient (CLI) | payer OTHER, SELFPAY ==
--- NOTE | 2022-08-31 18:30 | DI.RAD_ITS ---
Exam(s) XR CHEST 2V PA LATERAL EXAM: XR CHEST 2V PA LATERAL CLINICAL HISTORY: fatigue, wheezing on left r/o pneumonia TECHNIQUE: 2D digital imaging was performed of the chest. Two images were obtained. PA and lateral views were obtained. COMPARISON: CR XR CHEST 2V PA LATERAL from 06/25/2021 FINDINGS: MEDIASTINUM: Normal. HEART: Normal. PULMONARY VASCULATURE: Normal. LUNGS: Clear. PLEURAL SPACE: No pleural effusion or pneumothorax. BONE:Within normal limits for the patient's age. OTHER FINDINGS:Normal. IMPRESSION: No acute pulmonary findings. DATA REPOSITORY: RADIATION DOSE DELIVERED:
--- NOTE | 2022-08-31 19:34 | DI.VRAD_ITS ---
PROCEDURE INFORMATION: Exam: XR Chest Exam date and time: 08/31/2022 6:56 PM Age: 62 years old Clinical indication: Wheezing and other: Fatigue; Patient HX: Fatigue, wheezing on left R/O pneumonia TECHNIQUE: Imaging protocol: Radiologic exam of the chest. Views: 2 views. COMPARISON: CR XR CHEST 2V PA LATERAL 06/25/2021 9:40 AM FINDINGS: Lungs: Unremarkable. No consolidation. Pleural spaces: Unremarkable. No pleural effusion. No pneumothorax. Heart/Mediastinum: Unremarkable. No cardiomegaly. Bones/joints: Unremarkable. IMPRESSION: No acute findings. Dictated and Authenticated by: Kiko Salas MD. Ordering:SURY Jose MD
== END 2022-08-31 19:11 ==
LOC: DI 18:52
PROVIDERS: PCP Nurse Practitioner; Visit Provider Physician Assistant
DX: R53.83 Other fatigue (principal); R06.2 Wheezing
CPT/HCPCS: 71046

== ENCOUNTER 2024-04-25 01:09 | Outpatient (CLI) | payer OTHER, SELFPAY ==
--- NOTE | 2024-04-25 07:30 | DI.RAD_ITS ---
Exam(s) XR FOOT LT COMPLETE EXAM: XR FOOT LT COMPLETE CLINICAL HISTORY: 3, 4 and 5 metatarsal pain,CONTUSION,S90.32XA. TECHNIQUE: 2D digital imaging was performed of the left foot. Three images were obtained. AP, obli que and lateral views were obtained. COMPARISON: CR XR FOOT 3 VIEW LEFT from 04/10/2024 FINDINGS: BONES: No acute fracture is present. No bony destructive lesion is seen. JOINTS: No dislocation present. There is a mild hallux valgus deformity. Degenerative changes are se en in the foot particularly at the 1st metatarsophalangeal joint. Hammertoe deformities of the 4th a nd 5th toes are noted. SOFT TISSUE: Atherosclerotic calcification is seen in the soft tissues. IMPRESSION: 1. No acute abnormality. 2. Chronic changes of the left foot as described above. DATA REPOSITORY: RADIATION DOSE DELIVERED:
--- NOTE | 2024-04-25 07:30 | DI.RAD_ITS ---
Exam(s) XR FOOT RT COMPLETE EXAM: XR FOOT RT COMPLETE CLINICAL HISTORY: Heel pain,PLANTAR FASCITIS,M72.2. TECHNIQUE: 2D digital imaging was performed of the right foot. Three images were obtained. AP, obl ique and lateral views were obtained. COMPARISON: There are no priors for comparison. FINDINGS: BONES: No acute fracture is present. No bony destructive lesion is seen. There is pes planus. JOINTS: No dislocation present. There are degenerative changes seen in the interphalangeal joints of the foot particularly the 4th toe. SOFT TISSUE: Atherosclerotic calcification is seen in the soft tissues. IMPRESSION: Pes planus. Mild degenerative changes of the foot. DATA REPOSITORY: RADIATION DOSE DELIVERED:
== END 2024-04-25 01:29 ==
LOC: DI 01:09
PROVIDERS: PCP Nurse Practitioner; Visit Provider Podiatrist
DX: M72.2 Plantar fascial fibromatosis (principal); S90.32XA Contusion of left foot, initial encounter; X58.XXXA Exposure to other specified factors, initial encounter
CPT/HCPCS: 73630

== ENCOUNTER 2024-07-12 09:55 | Outpatient (CLI) | payer OTHER, SELFPAY ==
[2024-07-12 10:11] LABS: HCT 48.7 % (40.0-50.0); HGB 17.2 g/dL (13.5-17.5); MCH 32.7 pg (27.0-33.0); MCHC 35.3 % (32.0-36.0); MCV 93 fL (80-95); MPV 8.8 fL (8.0-11.0); Platelet Count 182 10^3/uL (130-400); RBC 5.26 10^6/uL (4.36-5.78); RDW 11.8 % (11.8-14.1); RDW-SD 40.5 fL; WBC 3.83 10^3/uL (4.4-10.8)
[2024-07-12 10:47] LABS: ALT 20 U/L (16-63); AST 17 U/L (15-37); Albumin 3.6 g/dL (3.4-5.0); Alkaline Phosphatase 102 U/L (46-116); Anion Gap 3.4 mmol/L (3-11); BUN 12 mg/dL (7-18); Bilirubin, Total 1.8 mg/dL (0.2-1.0); CO2 31.6 mmol/L (21.0-32.0); CREATININE 0.9 mg/dL (0.70-1.30); Calcium 8.7 mg/dL (8.5-10.1); Calculated LDL 121 mg/dL (<100); Chloride 104 mmol/L (98-107); Cholesterol 194 mg/dL (<200); Estimated GFR 95.97 (mL/min/1.73m2); Glucose 99 mg/dL (74-106); HDL Cholesterol 61 mg/dL (>or=40); Potassium 4.2 mmol/L (3.5-5.1); Sodium 139 mmol/L (136-145); Total Protein 6.9 g/dL (6.4-8.2); Triglyceride 60 mg/dL (<150)
== END 2024-07-12 09:56 | disposition home or self-care (01) ==
LOC: LBO 09:56
PROVIDERS: PCP Nurse Practitioner; Visit Provider Nurse Practitioner
DX: Z13.220 Encounter for screening for lipoid disorders (principal); Z00.00 Encounter for general adult medical examination without abnormal findings
CPT/HCPCS: 36415; 80053; 80061; 85027